=== PATIENT | male | born 1940 | race Caucasian/White ===

== ENCOUNTER 2020-10-13 05:23 | Day surgery (SDC) | payer MEDICARE, BC ==
[2020-10-09 14:55] LABS: BASOPHILS % (AUTO) 0.7 % (0-1); EOSINOPHILS # (AUTO) 0.1 X10'3 (0-0.9); EOSINOPHILS % (AUTO) 1.7 % (0-6); LYMPHOCYTES # (AUTO) 0.9 X10'3 (1.1-4.8); LYMPHOCYTES % (AUTO) 13.6 % (21-51); MEAN CORPUSCULAR HEMOGLOBIN 30.8 PG (27.0-31.0); MEAN CORPUSCULAR HGB CONC 32.4 g/dL (33.0-36.5); MEAN CORPUSCULAR VOLUME 95.2 FL (78-98); MEAN PLATELET VOLUME 9.4 FL (7.4-10.4); MONOCYTES # (AUTO) 0.5 X10'3 (0-0.9); MONOCYTES % (AUTO) 7.6 % (2-12); NEUTROPHILS # (AUTO) 5.1 X10'3 (1.8-7.7); NEUTROPHILS % (AUTO) 76.4 % (42-75); PRE OP HEMATOCRIT 46.6 % (42.0-52.0); PRE OP HEMOGLOBIN 15.1 g/dL (14.0-17.9); PRE OP PLATELET COUNT 282 X10'3 (140-440); RED BLOOD COUNT 4.89 X10'6 (4.70-6.10); RED CELL DISTRIBUTION WIDTH 15.5 % (11.5-14.5)
[2020-10-09 14:58] LABS: PRE OP INR 1.1 INR; PRE OP PROTIME 10.9 SECONDS (9.0-12.0)
[2020-10-09 15:02] LABS: ALBUMIN 3.7 G/DL (3.4-5.0); ALBUMIN/GLOBULIN RATIO 1.1 (1.1-1.5); ALKALINE PHOSPHATASE 55 IU/L (46-116); BLOOD UREA NITROGEN 29 MG/DL (7-18); BUN/CREATININE RATIO 14.6 (5.4-32.0); CALCIUM 9.9 MG/DL (8.5-10.1); CHLORIDE 106 MMOL/L (99-107); CREATININE 1.99 MG/DL (0.60-1.10); PRE OP ALT 22 U/L (30-65); PRE OP ANION GAP 9 (8-16); PRE OP AST 16 U/L (10-37); PRE OP BILIRUB, TOTAL 0.4 MG/DL (0.0-1.0); PRE OP GLUCOSE 96 MG/DL (70-104); PRE OP POTASSIUM 4.1 MMOL/L (3.4-5.1); PRE OP SODIUM 143 MMOL/L (135-145); TOTAL CARBON DIOXIDE 27.8 MMOL/L (24-32); TOTAL PROTEIN 7.2 G/DL (6.4-8.2); eGFR 32 ML/MIN
[~2020-10-13] VITALS: Ht 185.4 cm; Wt 73.4 kg
[2020-10-13] VITALS (17 sets, daily range): BP systolic 104–144; BP diastolic 44–68
[~2020-10-13 05:23] MED LIST: ASCO-134 PO; BUDE10.26 INH; FLO0.4C PO; MULT-1085 PO; SULF1TAB45 PO; ringers solution, lacted 1,000 ML IV SCH
[2020-10-13] MEDS ORDERED: ceFAZolin 2gm in dextrose, iso 50 ML IV ONE (05:30)
[2020-10-13] MEDS ORDERED: albuterol 2.5 MG/3 ML nebule NEB ONE (05:30)
[2020-10-13] MEDS ORDERED: famotidine 20mg tablet PO ONE (05:30)
[2020-10-13] MEDS ORDERED: neomy sulf/polymyxin B sulf. GU irrigation 1ml amp IR ONE (06:56)
[2020-10-13] MEDS ORDERED: sevoflurane 250ml liquid IH ONE (07:12)
[2020-10-13] MEDS ORDERED: fentaNYL/PF 50MCG/1 ML 2ML syringe IV PRN ×2 (07:45)
[2020-10-13] MEDS ORDERED: ondansetron/PF 4mg/2ml inj IV PRN ×2 (07:45→10:10)
[2020-10-13] MEDS ORDERED: ringers solution, lacted 1,000 ML IV SCH (07:45)
[2020-10-13] MEDS ORDERED: acetaminophen 1,000mg/100ml IV 100 ML IV PRN (07:45)
[2020-10-13] MEDS ORDERED: hydrALAZINE 20mg/ml inj. IV PRN (07:45)
[2020-10-13] MEDS ORDERED: proCHLORperazine 10 MG/2 ml inj IV PRN ×2 (07:45→10:10)
[2020-10-13] MEDS ORDERED: labetalol 20mg/4ml (5mg/ml) syringe IV PRN (07:45)
[2020-10-13] MEDS ORDERED: meperidine/PF 25mg/ml syringe IV PRN ×3 (07:45)
[2020-10-13] MEDS ORDERED: midazolam 1 mg/ML 2ml injection ONE (07:50)
[2020-10-13] MEDS ORDERED: fentaNYL/PF 50MCG/1 ML 2ML syringe ONE (07:50)
[2020-10-13] MEDS ORDERED: dicyclomine 10mg/ml 2ml ampule IM ONE (08:10)
[2020-10-13] MEDS ORDERED: opium/belladonna alkaloids No. 15A 30mg rectal suppository RC ONE (08:15)
[2020-10-13] MEDS ORDERED: oxybutynin 5mg per 5ml oral solution PO ONE (08:34)
[2020-10-13] MEDS ORDERED: ondansetron/PF 4mg/2ml inj ONE (08:47)
[2020-10-13] MEDS ORDERED: dexamethasone sod phosphate 4mg/ml inj. ONE (08:47)
[2020-10-13] MEDS ORDERED: 0.9 % SODIUM CHLORIDE 10 ML VIAL ONE (08:47)
[2020-10-13] MEDS ORDERED: LIDOcaine 2% (20mg/ml) 5ml vial ONE (08:47)
[2020-10-13] MEDS ORDERED: ePHEDrine 50MG/ML INJ. ONE (08:47)
[2020-10-13] MEDS ORDERED: propofol inj 20 ML IV ONE (08:47)
--- NOTE | 2020-10-13 09:59 | NUR ---
Received from OR via SURGICAL BED , accompanied by Anesthesiologist KAYLYNN and report given by Anesthesiolgist. PATIENT WITH 20G PIV IN RIGHT UE RUNNING LR AT 100. PATIENT WITH [address] WAY ALSTON CATHETER WITH IRRIGATION . BLOODY URINE EMPTIED FROM CATHETER UPON ARRIVAL. VSMonica. DONALDO WAY ON FROM OR. Addendum: 10/13/20 at 1015 by Migue Boss RN, RN Amended: Links added.
[2020-10-13] MEDS ORDERED: mag hydrox/Alum hydrox/simeth 30ml oral suspension PO PRN (10:10)
[2020-10-13] MEDS ORDERED: zolpidem 5mg tablet PO PRN (10:10)
[2020-10-13] MEDS ORDERED: oxybutynin 5mg tablet PO PRN (10:10)
[2020-10-13] MEDS ORDERED: LIDOcaine 2% 10ml TOPICAL JELLY (Urojet) TP ONE (10:10)
[2020-10-13] MEDS ORDERED: acetaminophen 325mg tablet PO PRN (10:10)
[2020-10-13] MEDS: albuterol 2.5 MG/3 ML nebule NEB SCH ×3 (10:13→20:01)
[2020-10-13] MEDS ORDERED: HYDROcodone/acetaminophen 10/325mg tab PO PRN ×2 (10:30→15:35)
--- NOTE | 2020-10-13 10:59 | NUR ---
Report called to receiving nurse. Transferred via SURGICAL BED WITH 3 BAGS OF Belongings WITH 2 PIECE DENTURES IN HIS CAMOFLAUGE BAG IN A LABELED PLASTIC GREEN CUP AND LID. Special Issues communicated to receiving nurse KISHORE BERGER.PATIENT WITH LIGHT PINK COLORED UREIEN PRESNT IN CATHETER. VSS. RN PRESNT TO ACCEPT PATIENT. BED LOW, CALL LIGHT PRESENT, VSS, DENIES PAIN. Addendum: 10/13/20 at 1115 by Migue Boss RN, RN Amended: Links added.
--- NOTE | 2020-10-13 11:21 | NUR ---
Received report from recovery room mildly sedated, no c/o pain or discomfort. Coronel irrigation connected, light reddish urine; stable v/s. Will monitor per protocol.
[2020-10-13] MEDS: potassium cl 20mEq in 1/2 NS 1,000 ML IV SCH ×3 (13:40→19:48)
[2020-10-13] MEDS: ceFAZolin/D5W- 1GM premix 50 ML IV SCH (15:36)
--- NOTE | 2020-10-13 16:18 | NUR ---
I have reviewed and agree with all medications administered and interventions performed by [facility] Student, Petra Dooley.
--- NOTE | 2020-10-13 18:49 | NUR ---
Patient in room [facility]. I have received report from AB Reeder and had the opportunity to ask questions and assume patient care.
--- NOTE | 2020-10-13 18:49 | NUR ---
Patient in room [facility]. I have received report from HELEN BERGER and had the opportunity to ask questions and assume patient care.
[2020-10-13] MEDS: docusate sod 100mg capsule PO SCH (19:47)
[2020-10-13] MEDS ORDERED: non-formulary drug (Budesonide/Formoterol Fumarate (Budesonide-Formoterol 160-4.5) 2 PUFFS INH SCH (20:00)
[2020-10-13] MEDS: budesonide 0.5mg/2ml UD nebule IH SCH (20:01)
[2020-10-13] MEDS ORDERED: tamsulosin 0.4mg capsule PO SCH (21:00)
[2020-10-14] VITALS: BP 97/55
[2020-10-14] MEDS: ceFAZolin/D5W- 1GM premix 50 ML IV SCH ×2 (00:11→07:07)
[2020-10-14] MEDS: albuterol 2.5 MG/3 ML nebule NEB SCH ×2 (02:55→08:27)
[2020-10-14 05:48] LABS: BASOPHILS % (AUTO) 0.2 % (0-1); EOSINOPHILS % (AUTO) 0.2 % (0-6); HEMOGLOBIN 13.2 g/dl (14.0-17.9); LYMPHOCYTES # (AUTO) 1.1 X10'3 (1.1-4.8); LYMPHOCYTES % (AUTO) 11.1 % (21-51); MEAN PLATELET VOLUME 8.9 FL (7.4-10.4); MONOCYTES # (AUTO) 0.7 X10'3 (0-0.9); MONOCYTES % (AUTO) 6.6 % (2-12); NEUTROPHILS # (AUTO) 8.4 X10'3 (1.8-7.7); NEUTROPHILS % (AUTO) 81.9 % (42-75); PLATELET COUNT 243 X10'3 (140-440); RED BLOOD COUNT 4.25 X10'6 (4.70-6.10); RED CELL DISTRIBUTION WIDTH 15.5 % (11.5-14.5); WHITE BLOOD COUNT 10.2 X10'3 (4.5-11.0)
[2020-10-14] MEDS: potassium cl 20mEq in 1/2 NS 1,000 ML IV SCH (06:00)
[2020-10-14 06:09] LABS: ALBUMIN 2.6 G/DL (3.4-5.0); ANION GAP 6 (8-16); BLOOD UREA NITROGEN 24 MG/DL (7-18); CALCIUM 8.6 MG/DL (8.5-10.1); CHLORIDE 108 MMOL/L (99-107); GLUCOSE 104 MG/DL (70-104); POTASSIUM 4.7 MMOL/L (3.5-5.1); SODIUM 136 MMOL/L (135-145); TOTAL CARBON DIOXIDE 21.7 MMOL/L (24-32); eGFR 42 ML/MIN
--- NOTE | 2020-10-14 06:30 | NUR ---
Patient in room [facility]. I have received report from AB Alston and had the opportunity to ask questions and assume patient care.
--- NOTE | 2020-10-14 06:32 | NUR ---
Problems reprioritized. Patient report given, questions answered & plan of care reviewed with HELEN BERGER.
[2020-10-14] MEDS: docusate sod 100mg capsule PO SCH (07:10)
[2020-10-14] MEDS ORDERED: pantoprazole 40mg Tablet.DR PO SCH ×2 (07:30)
[2020-10-14 08:00] VITALS: BP 98/49
[2020-10-14] MEDS: budesonide 0.5mg/2ml UD nebule IH SCH (08:27)
[2020-10-14] MEDS ORDERED: DOCU-148 PO (11:06)
--- NOTE | 2020-10-14 12:14 | NUR ---
Pt discharged home in stable condition. No bleeding after ambulation noted. education on Coronel cath care and bag changing provided to pt and director of primary care. IV removed. Encouraged pt to ambulate and increase fluids intake. Pt was escorted to main lobby on w/c; left the hospital via private vehicle accompanied by family member.
== END 2020-10-14 12:42 | disposition home or self-care (01) ==
LOC: PAS 05:23 → SUR 3N 10:07 → PAS 10-14 12:42
PROVIDERS: ATTEND Urology
DX: N40.1 Benign prostatic hyperplasia with lower urinary tract symptoms (principal); R33.8 Other retention of urine; N32.0 Bladder-neck obstruction
CPT/HCPCS: 36415; 52601; 80048; 80053; 82948; 85025; 85610; 85730; 86885; 86900; 86901; 87081; 87635; 93005; 94640; 94760; J0690; J1100; J2001; J2250; J2405; J2704; J3010; J7030; A4215; A4338; A4355; A4615; A4618; G0378; J3480; J7120; J7626